=== PATIENT | male | born 1995 | race Caucasian/White ===

== ENCOUNTER 2018-02-11 12:40 | Emergency (ER) | payer OTHER ==
[~2018-02-11] VITALS: Ht 172.7 cm; Wt 65.3 kg
[2018-02-11 12:52] VITALS: Ht 172.7 cm; Wt 65.3 kg
[2018-02-11 14:28] VITALS: BP 135/74
== END 2018-02-11 14:28 | disposition home or self-care (01) ==
LOC: ED 12:40
DX: M54.5 Low back pain (principal)